=== PATIENT | male | born 1955 | race Caucasian/White ===

== ENCOUNTER → 2020-01-23 | Emergency (ER) | payer OTHER ==
[~2020-01-23] VITALS: Ht 30.5 cm; Wt 0.5 kg
[~2020-01-23] MED LIST: ACETAMINOPHEN 325 MG TAB PO ONE; FOLIC ACID 1 MG, MULTIPLE VITAMIN 10 ML, MAGNESIUM SULF SDV 50% 8 MEQ, THIAMINE INJ 100... INJ ONE; FOLIC ACID 1 MG, MULTIPLE VITAMIN 10 ML, MAGNESIUM SULF SDV 50% 8 MEQ, THIAMINE INJ 100... INJ SCH; LACTULOSE 20Gm/30ML SOLN PO ONE; SODIUM CHLORIDE 0.9% 1,000 ML IVB ONE; cefTRIAXone 1GM/50ML D5W 50 ML IV ONE
[2020-01-23 17:03] LABS: Hemoglobin 11.5 g/dL (13.5-17.5)
[2020-01-23 17:05] LABS: Hematocrit 32.7 % (41.0-53.0); Mean Corpuscular Hemoglobin 39.2 pg (28.0-32.0); Mean Corpuscular Hgb Conc. 35.1 g/dL (32.0-36.0); Mean Corpuscular Volume 111.6 fL (80.0-100.0); Platelet Count (auto) 44 10^3/uL (140-450); Red Blood Cells 2.93 10^6/uL (4.5-5.90); Red Cell Distribution Width 16.8 % (11.8-14.3); White Blood Cell 5.5 10^3/uL (4.4-10.8)
[2020-01-23 17:17] LABS: Band Neutrophils % (manual) 0; Basophils % (manual) 0 (0.0-2.0); Blast Cells 0; Eosinophils % (manual) 0 (0-7); Metamyelocytes % 0; Myelocytes % 0; Promyelocytes % 0; Reactive Lymphocytes 0
[2020-01-23 17:45] LABS: Alanine Aminotransferase 21 U/L (16-61); Albumin 2.8 g/dL (3.4-5.0); Anion Gap 11 (5-15); Aspartate Aminotransferase 57 U/L (15-37); BUN/Creatinine Ratio 9.7; Blood Alcohol < 3.0 mg/dL (0-5); Blood Urea Nitrogen 10 mg/dL (7-18); Calcium 8.7 mg/dL (8.5-10.1); Carbon Dioxide 18 mmol/L (21-32); Chloride 104 mmol/L (98-107); GFR African American 93 mL/min; GFR Non-African American 77 mL/min; Glucose 112 mg/dL (74-106); Magnesium 1.4 mg/dL (1.6-2.6); Potassium 3.4 mmol/L (3.5-5.1); Sodium 133 mmol/L (136-145)
[2020-01-23 17:48] LABS: Alkaline Phosphatase 169 U/L (45-117); Total Protein 7.3 g/dL (6.4-8.2)
[2020-01-23 17:50] LABS: Urine Bacteria MANY /hpf (None Seen); Urine Blood 3+ /uL (Negative); Urine Budding Yeast FEW /hpf (None Seen); Urine Specific Gravity 1.018 (1.001-1.035); Urine WBC 706 /hpf (0 - 3)
[2020-01-23 17:53] LABS: Lymphocytes % (manual) 12 (10.0-50.0); Monocytes % (manual) 17 (0-12)
[2020-01-23 17:59] LABS: INR 1.84 (0.9-1.15); Partial Thromboplastin Time 35.1 sec (23.64-32.05)
[2020-01-23 18:00] LABS: Amphetamine Screen, Urine NEGATIVE (NEGATIVE); Barbiturate Scree,Urine NEGATIVE (NEGATIVE); Benzodiazephine Screen, Urine NEGATIVE (NEGATIVE); Cannabinoid Screen, Urine NEGATIVE (NEGATIVE); Cocaine Screen, Urine NEGATIVE (NEGATIVE); Opiate Scree,Urine NEGATIVE (NEGATIVE); Phencyclidine Screen, Urine NEGATIVE (NEGATIVE)
[2020-01-23] MEDS: MAGNESIUM SULFATE 1GM/100ML 100 ML IV SCH ×2 (20:06→20:53)
[2020-01-23 22:15] VITALS: BP 122/59
== END | disposition short-term general hospital (02) ==
LOC: EDUNIT# 15:46 → ER 16:08 → EDBD 16:08
DX: K70.10 Alcoholic hepatitis without ascites (principal); K70.40 Alcoholic hepatic failure without coma; R41.82 Altered mental status, unspecified; D69.6 Thrombocytopenia, unspecified; E87.6 Hypokalemia; E46 Unspecified protein-calorie malnutrition; N39.0 Urinary tract infection, site not specified; Z88.0 Allergy status to penicillin
CPT/HCPCS: 36415; 70450; 71045; 80053; 80307; 80320; 81001; 82140; 83735; 85007; 85027; 85610; 85730; 93005; 96361; 96365; 96366; 96367; 96368; 99285; J0696; J3411; J3475; J7030

== ENCOUNTER 2020-11-14 15:20 | Inpatient (IN) | payer OTHER ==
[~2020-11-14] VITALS: Ht 177.8 cm; Wt 63.7 kg
[2020-11-14] MEDS ORDERED: NOREPINEPHRINE 8 MG/250ML KIT 250 ML IV ONE (16:01)
[2020-11-14] MEDS: NOREPINEPHRINE 8 MG/250ML KIT 250 ML IV SCH (16:10)
[2020-11-14 16:59] LABS: Hemoglobin 7.2 g/dL (13.5-17.5); Platelet Count (auto) 50 10^3/uL (140-450); White Blood Cell 8.3 10^3/uL (4.4-10.8)
[2020-11-14 17:00] LABS: Hematocrit 20.3 % (41.0-53.0); Mean Corpuscular Hemoglobin 47.6 pg (28.0-32.0); Mean Corpuscular Hgb Conc. 35.2 g/dL (32.0-36.0); Mean Corpuscular Volume 135.2 fL (80.0-100.0); Red Cell Distribution Width 17.8 % (11.8-14.3)
[2020-11-14] MEDS ORDERED: PIPERACILLIN-TAZOB 3.375GM 100 ML IV ONE (17:00)
[2020-11-14 17:09] LABS: Albumin 2.4 g/dL (3.4-5.0); Potassium 4.2 mmol/L (3.5-5.1)
[2020-11-14 17:12] LABS: Bilirubin, Total 23.3 mg/dL (0.2-1.0); Total Protein 6.8 g/dL (6.4-8.2)
[2020-11-14 17:16] LABS: Band Neutrophils % (manual) 0; Basophils % (manual) 0 (0.0-2.0); Blast Cells 0; Metamyelocytes % 0; Myelocytes % 0; Promyelocytes % 0; Reactive Lymphocytes 0
[2020-11-14 17:34] LABS: Eosinophils % (manual) 3 (0-7); Lymphocytes % (manual) 8 (10.0-50.0); Monocytes % (manual) 4 (0-12)
[2020-11-14] MEDS ORDERED: MORPHINE SULF INJ 2 MG/ML SYRINGE 1ML IV PRN ×2 (19:00)
[2020-11-14] MEDS ORDERED: ALBUMIN 25% 100 ML IV ONE (19:00)
[2020-11-14] MEDS ORDERED: ONDANSETRON HCL 4 MG/2 ML VIAL IV PRN (19:00)
[2020-11-14] MEDS ORDERED: LORazepam 0.5 MG TAB PO PRN (19:00)
[2020-11-14] MEDS ORDERED: THIAMINE HCL 100 MG TAB PO ONE (19:00)
[2020-11-14] MEDS ORDERED: LACTULOSE 20Gm/30ML SOLN PO ONE (19:00)
[2020-11-14] MEDS ORDERED: LACTULOSE 20Gm/30ML SOLN PO PRN (19:00)
[2020-11-14] MEDS ORDERED: PANTOPRAZOLE 40 MG/10 ML VIAL INJ IV ONE (19:00)
[2020-11-14] MEDS ORDERED: NITROGLYCERIN 0.4 MG SL TAB SL PRN (19:00)
[2020-11-14] MEDS ORDERED: SUCRALFATE 1 GM/10 ML ORAL SUSP PO ONE (19:00)
[2020-11-14] MEDS ORDERED: ALUM & MAG HYDROX-SIMETH LIQ(MAALOX) 30 ML PO PRN (19:00)
[2020-11-14] MEDS ORDERED: HYDROcodone-ACET 5/325MG TAB PO PRN (19:00)
[2020-11-14] MEDS ORDERED: DOCUSATE SOD 100 MG CAP PO PRN (19:00)
[2020-11-14] MEDS ORDERED: AZTREONAM 1GM INJ 1 GM in D5W 5% 50 ML IV ONE (20:00)
[2020-11-14 20:03] LABS: Cholesterol 77 mg/dL (< 200); HDL Cholesterol 55 mg/dL (40-59); LDL Cholesterol 49 mg/dL (< 100); Triglycerides 74 mg/dL (< 150)
[2020-11-14 20:19] LABS: INR 2.26 (0.9-1.15)
[2020-11-14] MEDS: PANTOPRAZOLE 40 MG/10 ML VIAL INJ IV SCH (21:48)
[2020-11-14] MEDS: SUCRALFATE 1 GM/10 ML ORAL SUSP PO SCH (21:48)
[2020-11-14] MEDS: PROPRANOLOL HCL 20 MG TAB PO SCH (21:52)
[2020-11-15] VITALS (7 sets, daily range): BP systolic 98–115; BP diastolic 49–66
[2020-11-15] MEDS: ALBUMIN 25% 100 ML IV SCH ×3 (04:45→20:00)
[2020-11-15] MEDS: AZTREONAM 1GM INJ 1 GM in D5W 5% 50 ML IV SCH ×3 (05:46→22:08)
[2020-11-15 06:48] LABS: Urine Bacteria NONE SEEN /hpf (None Seen); Urine Blood 1+ /uL (Negative); Urine Specific Gravity 1.021 (1.001-1.035); Urine WBC 4 /hpf (0 - 3)
[2020-11-15 07:06] LABS: Alcohol, Urine < 3.0 mg/dL (0-10); Amphetamine Screen, Urine NEGATIVE (NEGATIVE); Barbiturate Scree,Urine NEGATIVE (NEGATIVE); Benzodiazephine Screen, Urine NEGATIVE (NEGATIVE); Cannabinoid Screen, Urine NEGATIVE (NEGATIVE); Cocaine Screen, Urine NEGATIVE (NEGATIVE); Opiate Scree,Urine NEGATIVE (NEGATIVE); Phencyclidine Screen, Urine NEGATIVE (NEGATIVE)
[2020-11-15] MEDS: SUCRALFATE 1 GM/10 ML ORAL SUSP PO SCH ×4 (07:50→22:26)
[2020-11-15 08:51] LABS: Hematocrit 16.8 % (41.0-53.0); Mean Corpuscular Hgb Conc. 36.8 g/dL (32.0-36.0); Red Blood Cells 1.28 10^6/uL (4.5-5.90); White Blood Cell 5.8 10^3/uL (4.4-10.8)
[2020-11-15 08:55] LABS: Mean Corpuscular Hemoglobin 48.5 pg (28.0-32.0); Mean Corpuscular Volume 131.7 fL (80.0-100.0); Platelet Count (auto) 44 10^3/uL (140-450); Red Cell Distribution Width 17.5 % (11.8-14.3)
[2020-11-15 09:07] LABS: Potassium 4.4 mmol/L (3.5-5.1)
[2020-11-15 09:08] LABS: Hemoglobin 6.2 g/dL (13.5-17.5)
[2020-11-15 09:09] LABS: Basophils % (manual) 0 (0.0-2.0); Blast Cells 0; Myelocytes % 0; Promyelocytes % 0; Reactive Lymphocytes 0
[2020-11-15 09:19] LABS: INR 2.45 (0.9-1.15)
[2020-11-15 09:20] LABS: Partial Thromboplastin Time 51.8 sec (23.0-31.2)
[2020-11-15 09:21] LABS: Albumin 2.6 g/dL (3.4-5.0); BUN/Creatinine Ratio 16.5; Bilirubin, Total 23.1 mg/dL (0.2-1.0); Calcium 8.2 mg/dL (8.5-10.1); Magnesium 1.6 mg/dL (1.6-2.6); Phosphorus 2.6 mg/dL (2.5-4.90)
[2020-11-15] MEDS: PROPRANOLOL HCL 20 MG TAB PO SCH ×2 (10:00→22:26)
[2020-11-15] MEDS: PANTOPRAZOLE 40 MG/10 ML VIAL INJ IV SCH (10:00)
[2020-11-15] MEDS: MULTIPLE VITAMINS W/ MINERALS TAB PO SCH (10:29)
[2020-11-15] MEDS: FLUoxetine HCL 20 MG CAP PO SCH (10:31)
[2020-11-15] MEDS: CYANOCOBALAMIN 500 MCG TAB PO SCH (10:35)
[2020-11-15] MEDS: FOLIC ACID 1 MG TAB PO SCH (10:36)
[2020-11-15] MEDS: THIAMINE HCL 100 MG TAB PO SCH (10:37)
[2020-11-15] MEDS: CHOLECALCIFEROL (VITD3) 2,000 UNIT CAP PO SCH (10:37)
[2020-11-15] MEDS ORDERED: CYANOCOBALAMIN 500 MCG TAB ONE (10:46)
[2020-11-15 12:57] LABS: Band Neutrophils % (manual) 8; Eosinophils % (manual) 2 (0-7); Lymphocytes % (manual) 7 (10.0-50.0); Metamyelocytes % 3; Monocytes % (manual) 9 (0-12)
[2020-11-15] MEDS ORDERED: PHYTONADIONE (VIT K)10 MG/ML 1ML VIAL SUBCUT ONE (15:30)
[2020-11-15] MEDS: NOREPINEPHRINE 8 MG/250ML KIT 250 ML IV SCH (16:00)
[2020-11-15 17:44] LABS: Hemoglobin 7.1 g/dL (13.5-17.5)
[2020-11-15 17:48] LABS: Hematocrit 19.3 % (41.0-53.0)
[2020-11-15] MEDS: PANTOPRAZOLE 40 MG TAB PO SCH (22:26)
[2020-11-16] VITALS: BP 115/59
[2020-11-16 05:00] VITALS: BP 115/58
[2020-11-16] MEDS: SUCRALFATE 1 GM/10 ML ORAL SUSP PO SCH ×4 (06:00→22:10)
[2020-11-16 06:25] LABS: Hematocrit 19.2 % (41.0-53.0); Mean Corpuscular Hemoglobin 44.9 pg (28.0-32.0); Platelet Count (auto) 34 10^3/uL (140-450); Red Blood Cells 1.57 10^6/uL (4.5-5.90)
[2020-11-16 06:28] LABS: Mean Corpuscular Hgb Conc. 36.7 g/dL (32.0-36.0); Mean Corpuscular Volume 122.4 fL (80.0-100.0); White Blood Cell 6.9 10^3/uL (4.4-10.8)
[2020-11-16 06:36] LABS: INR 2.54 (0.9-1.15)
[2020-11-16 06:39] LABS: Hemoglobin 7.1 g/dL (13.5-17.5); Red Cell Distribution Width 24.3 % (11.8-14.3)
[2020-11-16 06:40] LABS: Basophils % (manual) 0 (0.0-2.0); Blast Cells 0; Metamyelocytes % 0; Myelocytes % 0; Promyelocytes % 0; Reactive Lymphocytes 0
[2020-11-16] MEDS: AZTREONAM 1GM INJ 1 GM in D5W 5% 50 ML IV SCH (06:50)
[2020-11-16 07:21] LABS: Albumin 2.7 g/dL (3.4-5.0); Bilirubin, Direct 10.7 mg/dL (0-0.2); Bilirubin, Total 25.7 mg/dL (0.2-1.0); Magnesium 1.6 mg/dL (1.6-2.6); Total Protein 5.8 g/dL (6.4-8.2)
[2020-11-16 08:00] VITALS: BP 107/56
[2020-11-16 09:00] LABS: Band Neutrophils % (manual) 2; Eosinophils % (manual) 4 (0-7); Lymphocytes % (manual) 7 (10.0-50.0); Monocytes % (manual) 9 (0-12)
[2020-11-16] MEDS: MULTIPLE VITAMINS W/ MINERALS TAB PO SCH (09:27)
[2020-11-16] MEDS: THIAMINE HCL 100 MG TAB PO SCH (09:28)
[2020-11-16] MEDS: CHOLECALCIFEROL (VITD3) 2,000 UNIT CAP PO SCH (09:28)
[2020-11-16] MEDS: PANTOPRAZOLE 40 MG TAB PO SCH ×2 (09:28→22:10)
[2020-11-16] MEDS: CYANOCOBALAMIN 500 MCG TAB PO SCH (09:29)
[2020-11-16] MEDS: FOLIC ACID 1 MG TAB PO SCH (09:31)
[2020-11-16] MEDS: FLUoxetine HCL 20 MG CAP PO SCH (09:31)
[2020-11-16] MEDS: PROPRANOLOL HCL 20 MG TAB PO SCH ×2 (12:29→22:10)
[2020-11-16] MEDS ORDERED: MAGNESIUM SULFATE 1GM/100ML 100 ML IV ONE (13:00)
[2020-11-16] MEDS ORDERED: PHYTONADIONE (VIT K)10 MG/ML 1ML VIAL SUBCUT ONE (13:00)
[2020-11-16] MEDS: SODIUM CHLORIDE 0.9% 1,000 ML IV SCH (13:19)
[2020-11-16] MEDS ORDERED: RIFA550T PO (13:59)
[2020-11-16] MEDS ORDERED: LACT10SO3 PO (13:59)
[2020-11-16] MEDS: LACTULOSE 20Gm/30ML SOLN PO SCH ×3 (14:32→22:00)
[2020-11-16] MEDS: metroNIDAZOLE 500MG/100ML 100 ML IV SCH ×2 (14:32→22:10)
[2020-11-16 16:00] VITALS: BP 97/56
[2020-11-16 22:00] VITALS: BP 97/53
[2020-11-16] MEDS: URSODIOL 300 MG CAP PO SCH (22:10)
[2020-11-17] VITALS: BP 97/53
[2020-11-17] MEDS: LACTULOSE 20Gm/30ML SOLN PO SCH ×6 (02:16→21:53)
[2020-11-17 05:00] VITALS: BP 96/51
[2020-11-17] MEDS: SUCRALFATE 1 GM/10 ML ORAL SUSP PO SCH ×4 (06:10→21:53)
[2020-11-17] MEDS: SODIUM CHLORIDE 0.9% 1,000 ML IV SCH ×2 (06:10→21:53)
[2020-11-17] MEDS: metroNIDAZOLE 500MG/100ML 100 ML IV SCH ×3 (06:15→21:53)
[2020-11-17 07:01] LABS: Potassium 3.9 mmol/L (3.5-5.1)
[2020-11-17 07:02] LABS: Hematocrit 19.5 % (41.0-53.0); Red Cell Distribution Width 24.4 % (11.8-14.3)
[2020-11-17 07:04] LABS: Hemoglobin 7.1 g/dL (13.5-17.5); Mean Corpuscular Hemoglobin 44.6 pg (28.0-32.0); Mean Corpuscular Hgb Conc. 36.4 g/dL (32.0-36.0); Mean Corpuscular Volume 122.5 fL (80.0-100.0); Platelet Count (auto) 36 10^3/uL (140-450); Red Blood Cells 1.59 10^6/uL (4.5-5.90); White Blood Cell 5.7 10^3/uL (4.4-10.8)
[2020-11-17 07:10] LABS: Basophils % (manual) 0 (0.0-2.0); Blast Cells 0; Metamyelocytes % 0; Myelocytes % 0; Promyelocytes % 0; Reactive Lymphocytes 0
[2020-11-17 07:18] LABS: INR 2.27 (0.9-1.15); Partial Thromboplastin Time 55.2 sec (23.0-31.2)
[2020-11-17 07:22] LABS: Albumin 2.4 g/dL (3.4-5.0); BUN/Creatinine Ratio 12.5; Bilirubin, Total 24.7 mg/dL (0.2-1.0); Calcium 8.1 mg/dL (8.5-10.1); Total Protein 5.5 g/dL (6.4-8.2)
[2020-11-17 08:00] VITALS: BP 102/58
[2020-11-17] MEDS: predniSONE 20 MG TAB PO SCH (10:03)
[2020-11-17] MEDS: MULTIPLE VITAMINS W/ MINERALS TAB PO SCH (10:03)
[2020-11-17] MEDS: PANTOPRAZOLE 40 MG TAB PO SCH ×2 (10:03→21:53)
[2020-11-17] MEDS: levoFLOXacin 500MG 100 ML IV SCH (10:03)
[2020-11-17] MEDS: FOLIC ACID 1 MG TAB PO SCH (10:04)
[2020-11-17] MEDS: CYANOCOBALAMIN 500 MCG TAB PO SCH (10:04)
[2020-11-17] MEDS: CHOLECALCIFEROL (VITD3) 2,000 UNIT CAP PO SCH (10:04)
[2020-11-17] MEDS: FLUoxetine HCL 20 MG CAP PO SCH (10:04)
[2020-11-17] MEDS: THIAMINE HCL 100 MG TAB PO SCH (10:05)
[2020-11-17] MEDS: URSODIOL 300 MG CAP PO SCH ×2 (10:12→21:53)
[2020-11-17 10:54] LABS: Band Neutrophils % (manual) 8; Eosinophils % (manual) 7 (0-7); Lymphocytes % (manual) 10 (10.0-50.0); Monocytes % (manual) 10 (0-12)
[2020-11-17] MEDS ORDERED: PHYTONADIONE (VIT K)10 MG/ML 1ML VIAL SUBCUT ONE (11:45)
[2020-11-17 16:00] VITALS: BP 101/54
[2020-11-17 21:40] VITALS: BP 111/61
[2020-11-18] VITALS: BP 111/61
[2020-11-18] MEDS: LACTULOSE 20Gm/30ML SOLN PO SCH ×5 (02:15→18:04)
[2020-11-18 05:28] VITALS: BP 106/56
[2020-11-18] MEDS: metroNIDAZOLE 500MG/100ML 100 ML IV SCH ×2 (05:56→14:45)
[2020-11-18] MEDS: SUCRALFATE 1 GM/10 ML ORAL SUSP PO SCH ×3 (06:00→17:16)
[2020-11-18 08:00] VITALS: BP 107/58
[2020-11-18 08:34] LABS: Magnesium 1.8 mg/dL (1.6-2.6); Potassium 5.1 mmol/L (3.5-5.1)
[2020-11-18 08:36] LABS: INR 2.31 (0.9-1.15)
[2020-11-18 08:45] LABS: Bilirubin, Total 24.6 mg/dL (0.2-1.0)
[2020-11-18] MEDS ORDERED: CYAN100T7 PO (09:51)
[2020-11-18] MEDS: levoFLOXacin 500MG 100 ML IV SCH (11:10)
[2020-11-18] MEDS: FOLIC ACID 1 MG TAB PO SCH (11:10)
[2020-11-18] MEDS: THIAMINE HCL 100 MG TAB PO SCH (11:11)
[2020-11-18] MEDS: predniSONE 20 MG TAB PO SCH (11:11)
[2020-11-18] MEDS: FLUoxetine HCL 20 MG CAP PO SCH (11:12)
[2020-11-18] MEDS: MULTIPLE VITAMINS W/ MINERALS TAB PO SCH (11:12)
[2020-11-18] MEDS: CYANOCOBALAMIN 500 MCG TAB PO SCH (11:13)
[2020-11-18] MEDS: CHOLECALCIFEROL (VITD3) 2,000 UNIT CAP PO SCH (11:13)
[2020-11-18] MEDS: PANTOPRAZOLE 40 MG TAB PO SCH (11:13)
[2020-11-18] MEDS: URSODIOL 300 MG CAP PO SCH (12:18)
[2020-11-18] MEDS ORDERED: URSO300C4 PO (12:54)
[2020-11-18] MEDS ORDERED: PANT40T PO (12:54)
[2020-11-18] MEDS ORDERED: LEVO500T31 PO (12:54)
[2020-11-18] MEDS ORDERED: METR500T PO (12:54)
[2020-11-18] MEDS ORDERED: FOLI1TAB6 PO (12:54)
[2020-11-18] MEDS ORDERED: THIA100T10 PO (12:54)
[2020-11-18] MEDS ORDERED: MULT-351 PO (12:54)
[2020-11-18] MEDS ORDERED: LACT10SO3 PO (12:59)
[2020-11-18] MEDS: SODIUM CHLORIDE 0.9% 1,000 ML IV SCH (15:00)
[2020-11-18 16:00] VITALS: BP 106/57
[2020-11-18 18:06] VITALS: BP 106/57
== END 2020-11-18 20:42 | DRG 432 ==
LOC: ER 15:20 → EDBD 15:20 → TELE 18:59 → TELE-CENTR 11-15 21:29
PROVIDERS: ADMIT Hospitalist; ATTEND Internal Medicine
PROC: 30233N1 Transfusion of Nonautologous Red Blood Cells into Peripheral Vein, Percutaneous Approach (ICD-10-PCS; principal; 2020-11-15)
DX: K70.31 Alcoholic cirrhosis of liver with ascites (principal); E43 Unspecified severe protein-calorie malnutrition; K76.6 Portal hypertension; D68.4 Acquired coagulation factor deficiency; E87.1 Hypo-osmolality and hyponatremia; I85.10 Secondary esophageal varices without bleeding; K72.90 Hepatic failure, unspecified without coma; K80.20 Calculus of gallbladder without cholecystitis without obstruction; Z20.822 Contact with and (suspected) exposure to COVID-19; Z51.5 Encounter for palliative care; Z66 Do not resuscitate; F41.9 Anxiety disorder, unspecified; I95.9 Hypotension, unspecified; D53.9 Nutritional anemia, unspecified; D69.6 Thrombocytopenia, unspecified; D75.89 Other specified diseases of blood and blood-forming organs; F10.20 Alcohol dependence, uncomplicated; F32.9 Major depressive disorder, single episode, unspecified; K31.89 Other diseases of stomach and duodenum; Z79.899 Other long term (current) drug therapy; Z79.891 Long term (current) use of opiate analgesic; Z79.01 Long term (current) use of anticoagulants; Z79.82 Long term (current) use of aspirin; Z68.20 Body mass index [BMI] 20.0-20.9, adult
CPT/HCPCS: 36415; 70450; 71045; 74176; 76705; 80053; 80061; 80076; 80307; 81001; 82140; 82247; 82270; 82962; 83036; 83735; 84100; 84132; 84484; 85007; 85014; 85018; 85027; 85610; 85730; 86850; 86900; 86901; 86920; 87040; 87081; 87086; 87426; 92610; 93005; 96365; 96366; 96367; 97110; 97116; 97163; 97530; G0378; J1956; J2543; J3430; J3490; J7060; P9047